=== PATIENT | male | born 1955 | race Caucasian/White ===

== ENCOUNTER 2018-09-09 07:22 | Day surgery (SDC) | payer BC, OTHER ==
[~2018-09-09] VITALS: Ht 165.1 cm; Wt 87.3 kg
[~2018-09-09 07:22] MED LIST: BACITRACIN 50,000 UNIT ONE; BUPIVACAINE/PF-EPI 0.5% 1:200K ONE; LISI-170 PO; METF500T17 PO; ROSU20TA PO; THROMBIN 5,000 UNIT VIAL TP ONE
[2018-09-09] MEDS ORDERED: LACTATED RINGERS 1,000 ML IV SCH (07:39)
[2018-09-09] MEDS ORDERED: ONDANSETRON ODT 8 MG PO ONE (08:00)
[2018-09-09] MEDS ORDERED: ACETAMINOPHEN 500 MG TABLET PO ONE (08:00)
[2018-09-09] MEDS ORDERED: GABAPENTIN 300 MG CAPSULE PO ONE (08:00)
[2018-09-09] MEDS ORDERED: FENTANYL PF 250 MCG/5ML ONE (10:19)
[2018-09-09] MEDS ORDERED: MIDAZOLAM 1 MG/ML, 2ML ONE (10:19)
[2018-09-09] MEDS ORDERED: EPHEDRINE 50 MG/ML, 1ML ONE (11:13)
[2018-09-09] MEDS ORDERED: PHENYLEPHRINE 10 MG/ML ONE (11:13)
[2018-09-09] MEDS ORDERED: ROCURONIUM 10 MG/ML,10ML ONE (11:13)
[2018-09-09] MEDS ORDERED: SUCCINYLCHOLINE 20 MG/ML, 10ML ONE (11:13)
[2018-09-09] MEDS ORDERED: ONDANSETRON 2MG/ML, 2ML IV PRN (11:30)
[2018-09-09] MEDS ORDERED: MIDAZOLAM 1 MG/ML, 2ML IV PRN (11:30)
[2018-09-09] MEDS ORDERED: ALBUTEROL/IPRATROPIUM 2.5MG/0.5MG, 3 ML NPPB PRN (11:30)
[2018-09-09] MEDS ORDERED: METOPROLOL 1 MG/ML, 5ML IV PRN (11:30)
[2018-09-09] MEDS ORDERED: PROMETHAZINE 25 MG/ML, 1ML IV PRN (11:30)
[2018-09-09] MEDS ORDERED: hydrALAzine 20 MG/ML, 1ML IV PRN (11:30)
[2018-09-09] MEDS ORDERED: SCOPOLAMINE PATCH, 1.5MG PATCH.TD72 TD PRN (11:30)
[2018-09-09] MEDS ORDERED: HYDROmorphone 2 MG/ML, 1ML IVPush PRN (11:30)
[2018-09-09] MEDS ORDERED: OXYcodone 5 MG/5 ML ORAL.SOL UDC PO PRN (11:30)
[2018-09-09] MEDS ORDERED: MEPERIDINE/PF 25MG/0.5ML IVPush PRN (11:30)
[2018-09-09] MEDS ORDERED: DEXAMETHASONE 4 MG/ML, 1ML ONE (12:08)
[2018-09-09] MEDS ORDERED: PROPOFOL 10 MG/ML, 20ML ONE (12:08)
[2018-09-09] MEDS ORDERED: CEFAZOLIN 1,000 MG ONE (12:08)
[2018-09-09] MEDS ORDERED: OXYcodone 5 MG/5 ML ORAL.SOL UDC ONE (12:44)
[2018-09-09] MEDS ORDERED: METHOCARBAMOL 750 MG TABLET ONE (12:45)
[2018-09-09] MEDS ORDERED: FENTANYL PF 100 MCG/2ML ONE (12:56)
[2018-09-09] MEDS: FENTANYL PF 100 MCG/2ML IV PRN ×2 (12:58→13:05)
[2018-09-09] MEDS ORDERED: METHOCARBAMOL 750 MG TABLET PO PRN (13:00)
== END 2018-09-09 16:00 | disposition home or self-care (01) ==
LOC: OUT 07:22
PROVIDERS: ATTEND Neurological Surgery
DX: M51.16 Intervertebral disc disorders with radiculopathy, lumbar region (principal); M48.061 Spinal stenosis, lumbar region without neurogenic claudication; E78.00 Pure hypercholesterolemia, unspecified; M10.9 Gout, unspecified; E11.9 Type 2 diabetes mellitus without complications; Z98.890 Other specified postprocedural states; Z88.0 Allergy status to penicillin; Z79.84 Long term (current) use of oral hypoglycemic drugs
CPT/HCPCS: 63030; 63047; 72100; J0330; J0690; J1100; J2250; J2370; J2704; J3010; J7120; Q0162